=== PATIENT | female | born 1980 | race Caucasian/White ===

== ENCOUNTER 2020-02-15 01:16 | Emergency (ER) | payer MEDICAID ==
[2020-02-15 01:52] LABS: ABSOLUTE BASOPHILS # (AUTO) 0.1 10^3/uL (0.0-0.2); ABSOLUTE EOSINOPHILS # (AUTO) 0.2 10^3/uL (0.0-0.6); ABSOLUTE LYMPHOCYTES (AUTO) 3.6 10^3/uL (0.5-4.7); ABSOLUTE MONOCYTES (AUTO) 0.6 10^3/uL (0.1-1.4); ABSOLUTE NEUT (AUTO) 5.3 10^3/uL (1.7-8.2); BASOPHILS % (AUTO) 0.8 % (0-2); EOSINOPHILS % (AUTO) 2.2 % (0-6); HEMATOCRIT 35.8 % (36.0-47.0); HEMOGLOBIN 12.6 g/dL (12.0-15.5); LYMPHOCYTES % (AUTO) 36.9 % (13-45); MEAN CORPUSCULAR HGB CONC 35.1 g/dL (32.0-36.0); MEAN CORPUSCULAR VOLUME 94 fl (80-97); MONOCYTES % (AUTO) 5.7 % (3-13); PLATELET COUNT 340 10^3/uL (150-450); RED BLOOD COUNT 3.81 10^6/uL (3.72-5.28); RED CELL DISTRIBUTION WIDTH 13.2 % (11.5-14.0); SEGMENTED NEUTROPHILS % (AUTO) 54.4 % (42-78); TOTAL CELLS COUNTED % (AUTO) 100 %; WHITE BLOOD COUNT 9.8 10^3/uL (4.0-10.5)
[2020-02-15 02:10] LABS: INTERNATIONAL RATION (INR) 0.96; PARTIAL THROMBOPLASTIN TIME 27.4 SEC (23.5-35.8); PROTHROMBIN TIME 12.8 SEC (11.4-15.4)
[2020-02-15 02:13] LABS: ALBUMIN 3.9 g/dL (3.5-5.0); ALKALINE PHOSPHATASE 99 U/L (38-126); ANION GAP 5 (5-19); ASPARTATE AMINO TRANSFERASE 40 U/L (14-36); BILIRUBIN,TOTAL 0.1 mg/dL (0.2-1.3); BLOOD UREA NITROGEN 16 mg/dL (7-20); CALCIUM 9.3 mg/dL (8.4-10.2); CARBON DIOXIDE 29 mmol/L (22-30); CHLORIDE 106 mmol/L (98-107); CREATINE KINASE 63 U/L (30-135); GLUCOSE 103 mg/dL (75-110); POTASSIUM 4.5 mmol/L (3.6-5.0); TOTAL PROTEIN 6.3 g/dL (6.3-8.2)
--- NOTE | 2020-02-15 02:15 | ER Document Report ---
ED General - General Chief Complaint: Chest Pain > 30 Stated Complaint: CHEST PAIN/DISCOMFORT Primary Care Provider: SHAWN STARK [NO LOCAL MD] - Follow up as needed Information source: Patient - HPI Notes: 39-year-old female history of MS stented January 27, 2020 presents with 2 hours of retrosternal pressure-like chest pain without radiation associated with shortness of breath that began at rest at home. Patient had similar symptoms when she presented to ED several weeks ago, the LAD stent placed and was discharged on aspirin Plavix and atorvastatin which she has been compliant with. Patient given nitroglycerin by EMS which greatly improved her pain. Patient unaware of any CAD risk factors other than smoking. Patient denies any fever chills, abdominal pain, back pain, lower extremity edema, other cardiac history, trauma, dizziness/syncope - Related Data Allergies/Adverse Reactions: No Known Allergies Allergy (Unverified 02/15/20 01:38) Past Medical History - General Information source: Patient - Social History Smoking Status: Current Every Day Smoker Family History: Reviewed & Not Pertinent Patient has homicidal ideation: No - Past Medical History Cardiac Medical History: Reports: Hx Heart Attack - jan 27 2020, Hx Hypercholesterolemia, Hx Hypertension Past Surgical History: Reports: Hx Cardiac Catheterization, Hx Tubal Ligation Review of Systems - Review of Systems Notes: REVIEW OF SYSTEMS: CONSTITUTIONAL : Denies fever, chills, or sweats. EENT: Denies recent cold/sinus symptoms, denies throat pain CARDIOVASCULAR: + chest pain, -SERA RESPIRATORY: Denies cough, + shortness of breath. GASTROINTESTINAL: Denies abdominal pain, nausea/vomiting. GENITOURINARY: Denies difficulty urinating, painful urination. FEMALE GENITOURINARY: Denies abnormal vaginal bleeding, vaginal discharge. MUSCULOSKELETAL: Denies neck pain, back pain. SKIN: Denies rash or skin lesions. HEMATOLOGIC : Denies easy bruising or bleeding. LYMPHATIC: Denies swollen, enlarged glands. NEUROLOGICAL: Denies headache, denies change in gait. PSYCHIATRIC: + anxiety - stress or depression. Physical Exam - Vital signs Vitals: Temp 97.7 F 02/15/20 01:32 - Notes Notes: PHYSICAL EXAMINATION: GENERAL: Well-appearing, well-nourished and in no acute distress. HEAD: Atraumatic, normocephalic. EYES: Pupils equal round and appropriate constriction, sclera anicteric, conjunctiva are normal. ENT: nares patent, moist mucous membranes. NECK: Normal range of motion, supple without lymphadenopathy LUNGS: Breath sounds clear to auscultation bilaterally and equal. No wheezes rales or rhonchi. HEART: Regular rate and rhythm without murmurs ABDOMEN: Soft, nontender, no guarding, no masses, no CVAT EXTREMITIES: Normal range of motion, no pitting or edema. No cyanosis. NEUROLOGICAL: Awake, alert, conversing appropriately, moves all extremities spontaneously. PSYCH: Normal mood, normal affect. SKIN: Warm, Dry, normal turgor, no rashes or lesions noted. Course - Re-evaluation Re-evalutation: 02/15/20 02:13 Story highly concerning for ACS, possible stent reocclusion, but patient currently greatly improved, still has mild chest pain, stable pending transfer but will continue to monitor closely. EKG concerning for deep precordial lead T wave inversions possibly Wellens versus post reperfusion changes. [facility] called for transfer as this is where she was stented. 02/15/20 02:49 Discussed case and EKG with deep precordial T wave inversions with candle maker Dr. Long at [facility]. Does not want patient anticoagulated currently given that she is minimally symptomatic and if she had stent occlusion he believes that she should be presenting with STEMI, does not want any more meds given while she awaits transfer to telemetry bed at [facility]. Patient accepted for transfer. No need for ASA currently as given by EMS. 02/15/20 07:36 Called patient's and updated him on her status as per patient's request. 02/15/20 07:39 Patient currently asymptomatic, exam remains normal, vital signs remained stable, patient continues to be appropriate for transfer. - Vital Signs Vital signs: Temp Pulse Resp BP Pulse Ox 98.1 F 19 128/90 H 92 02/15/20 08:55 02/15/20 08:55 02/15/20 08:55 02/15/20 08:55 - Laboratory Result Diagrams: 02/15/20 01:00 02/15/20 01:00 Laboratory results interpreted by me: 02/15/20 02/15/20 01:00 01:00 Hct 35.8 L Total Bilirubin 0.1 L AST 40 H ALT 40 H - EKG Interpretation by Me Additional EKG results interpreted by me: 02/15/20 01:45 HR 63, normal sinus rhythm, no sig ST elevations or depressions, marked precordial V1-6 T wave sharp inversions concerning for Wellen's, repeat ordered 02/15/20 02:15 repeat EKG, no significant change from initial EKG Discharge - Discharge Clinical Impression: Chest pain due to CAD Condition: Fair Disposition: [facility] Admitting Provider: Dr. Long Unit Admitted: Telemetry Referrals: LOCALMD,NO [NO LOCAL MD] - Follow up as needed
[2020-02-15 02:33] LABS: CREATINE KINASE MB 2.42 ng/mL (<4.55); TROPONIN I 0.015 ng/mL
--- NOTE | 2020-02-15 07:26 | EKG REPORT ---
SEVERITY:- ABNORMAL ECG - SINUS RHYTHM LEFT ATRIAL ABNORMALITY REPOL ABNRM, PROBABLE ISCHEMIA, ANT-LAT LEADS : Confirmed by: Earnest White MD 15-Feb-2020 07:25:36
--- NOTE | 2020-02-15 07:26 | EKG REPORT ---
SEVERITY:- ABNORMAL ECG - SINUS BRADYCARDIA PROBABLE LEFT ATRIAL ABNORMALITY REPOL ABNRM, PROBABLE ISCHEMIA, ANT-LAT LEADS , CLINICAL CORRELATION NEEDED, NO OLD EKGS FOR COMPARIS ON : Confirmed by: Earnest White MD 15-Feb-2020 07:25:23
--- NOTE | 2020-02-15 08:26 | RADIOLOGY REPORT (SQ) ---
EXAM DESCRIPTION: CHEST SINGLE VIEW IMAGES COMPLETED DATE/TIME: 02/15/2020 7:49 am REASON FOR STUDY: cp cad COMPARISON: None. EXAM PARAMETERS: NUMBER OF VIEWS: One view. TECHNIQUE: An AP view of the chest was obtained. RADIATION DOSE: NA LIMITATIONS: None. FINDINGS: LUNGS AND PLEURA: Basilar predominant symmetric interstitial opacities. The costophrenic sulci are blunted. There is no pneumothorax or consolidation. MEDIASTINUM AND HILAR STRUCTURES: No mediastinal or hilar contour abnormality. HEART AND VASCULAR STRUCTURES: The cardiac silhouette and pulmonary vasculature are within normal nolan its. BONES: No acute findings. HARDWARE: None in the chest. OTHER: No other finding. IMPRESSION: Basilar predominant symmetric interstitial opacities without a superimposed consolidatio n. TECHNICAL DOCUMENTATION: JOB ID: [id number] 2010 [employer]- All Rights Reserved Reading location - IP/workstation name: [email or web address]
[2020-02-15 08:59] VITALS: BP 128/90
--- NOTE | 2020-02-15 09:05 | ER Document Report ---
ED Medical Screen (RME) - General Chief Complaint: Chest Pain > 30 Stated Complaint: CHEST PAIN/DISCOMFORT Primary Care Provider: SHAWN STARK [NO LOCAL MD] - Follow up as needed Notes: Reassessed at 903, stable for transfer - Related Data Allergies/Adverse Reactions: No Known Allergies Allergy (Unverified 02/15/20 01:38) Past Medical History - Past Medical History Cardiac Medical History: Reports: Hx Heart Attack - jan 27 2020, Hx Hypercholesterolemia, Hx Hypertension Past Surgical History: Reports: Hx Cardiac Catheterization, Hx Tubal Ligation Physical Exam - Vital signs Vitals: Temp 97.7 F 02/15/20 01:32 Course - Vital Signs Vital signs: Temp Pulse Resp BP Pulse Ox 98.1 F 19 128/90 H 92 02/15/20 08:55 02/15/20 08:55 02/15/20 08:55 02/15/20 08:55 - Laboratory Result Diagrams: 02/15/20 01:00 02/15/20 01:00 Laboratory results interpreted by me: 02/15/20 02/15/20 01:00 01:00 Hct 35.8 L Total Bilirubin 0.1 L AST 40 H ALT 40 H Doctor's Discharge - Discharge Clinical Impression: Chest pain due to CAD Condition: Fair Disposition: [facility] Referrals: SHAWN STARK [NO YAW MD] - Follow up as needed
== END 2020-02-15 09:00 | disposition short-term general hospital (02) ==
LOC: ER 01:16
DX: R07.9 Chest pain, unspecified (principal); I25.10 Atherosclerotic heart disease of native coronary artery without angina pectoris; I25.2 Old myocardial infarction; I10 Essential (primary) hypertension
CPT/HCPCS: 36415; 71045; 80053; 82550; 82553; 84484; 85025; 85610; 85730; 86850; 86900; 86901; 93005; 93010; 99285